=== PATIENT | female | born 1960 | race Caucasian/White ===

== ENCOUNTER 2019-04-09 17:15 | Emergency (ER) | payer BC, SELFPAY ==
[2019-04-09] MEDS ORDERED: LIDOCAINE 1% MPF 30 ML VIAL ONE (17:46)
[2019-04-09] MEDS ORDERED: LIDOCAINE 1% MPF 5 ML VIAL ONE (17:46)
[2019-04-09] MEDS ORDERED: LIDOCAINE 1% W/EPI 1:100,000 MDV 20 ML VIAL ONE (17:47)
--- NOTE | 2019-04-09 18:21 | ER ---
Nurse's Notes [facility] Name: Nasra Anthony Age: 58 yrs Sex: Female : 1960 Arrival Date: 04/09/2019 Time: 17:18 Bed 6 Private MD: Diagnosis: Left breast abscess and cellulitis Presentation: 04/09 17:31 Presenting complaint: abscess on left breast x 1 week. Transition of care: patient was hb not received from another setting of care. Onset of symptoms was April 03, 2019. Risk Assessment: Do you want to hurt yourself or someone else? Patient reports no desire to harm self or others. Initial Sepsis Screen: Does the patient meet any 2 criteria? HR > 90 bpm. No. Patient's initial sepsis screen is negative. Care prior to arrival: None. 17:31 Method Of Arrival: Ambulatory hb 17:31 Acuity: STEVE 3 hb 18:00 Initial Sepsis Screen: Does the patient have a suspected source of infection? Yes:. iw Historical: - Allergies: 17:33 Hydrocodone-Acetaminophen; hb - PMHx: 17:33 Depression; High Cholesterol; Hypertension; hb - PSHx: 17:33 Hysterectomy; cervical laminectomy; hb - Immunization history:: Adult Immunizations up to date. - Social history:: Smoking status: Patient/guardian denies using tobacco. - Ebola Screening: : No symptoms or risks identified at this time. Screenin:18 Abuse screen: Denies threats or abuse. Denies injuries from another. Nutritional iw screening: No deficits noted. Tuberculosis screening: No symptoms or risk factors identified. Fall Risk None identified. Assessment: 17:50 General: Appears in no apparent distress. Behavior is calm, cooperative. Pain: iw Complains of pain in left breast. Neuro: Level of Consciousness is awake, alert, obeys commands, Oriented to person, place, time, situation, Moves all extremities. Full function. Respiratory: Respiratory effort is even, unlabored, Respiratory pattern is regular, symmetrical. Derm: Abscess located on left lateral anterior chest is golf ball sized, has no drainage, is hot to touch, is red, is raised, was lanced by patient prior to arrival, black colored skin/scabbing noted to left breast. Musculoskeletal: Range of motion: intact in all extremities. Vital Signs: 17:32 BP 164 / 92; Pulse 99; Resp 20; Temp 100(TE); Pulse Ox 97% on R/A; Weight 106.59 kg; hb Height 5 ft. 8 in. (172.72 cm); Pain 8/10; 17:32 Body Mass Index 35.73 (106.59 kg, 172.72 cm) hb ED Course: 17:18 Patient arrived in ED. mr 17:26 Deshaun Martínez MD is Attending Physician. ps1 17:32 Triage completed. hb 17:32 Arm band placed on. hb 17:36 Nany Lance, RN is Primary Nurse. iw 17:49 Patient has correct armband on for positive identification. Placed in gown. Bed in low mh5 position. Call light in reach. Side rails up X 1. Adult w/ patient. Warm blanket given. Pulse ox on. NIBP on. 18:18 Assist provider with I \T\ D: of an abscess on left breast Set up I\T\D tray. Performed by iw Deshaun Martínez MD Wound packed. iodoform gauze, Dressing with Neosporin and 4X4s, tape Patient tolerated well. 18:30 Patient did not have IV access during this emergency room visit. iw Administered Medications: No medications were administered Outcome: 18:20 Discharge ordered by . ps1 18:30 Discharged to home ambulatory, with family. iw 18:30 Condition: good 18:30 Discharge instructions given to patient, family, Instructed on discharge instructions, follow up and referral plans. medication usage, Demonstrated understanding of instructions, follow-up care, medications, Prescriptions given X 4. 18:35 Patient left the ED. iw 18:44 Patient left the ED. iw Addendum: 04/12/2019 07:21 Addendum: Culture Results: Positive urine culture. No further action required. Bacteria e b sensitive to prescribed antibiotic. Signatures: Leigh [address] mr Nany Lance RN RN iw Caron Chisholm RN RN June Cash [facility] Deshaun Martínez MD MD ps1 Anastasiya Ramesh
--- NOTE | 2019-04-09 18:21 | EDPHYS ---
Physician Documentation [facility] Name: Nasra Anthony Age: 58 yrs Sex: Female : 1960 Arrival Date: 04/09/2019 Time: 17:18 Bed 6 Private MD: ED Physician Deshaun Martínez HPI: 04/09 18:10 This 58 yrs old Female presents to ER via Ambulatory with complaints of ps1 Abscess. 18:10 patient has a moderate sized abscess of the left breast. Onset was 5 days ago. ps1 Surrounding cellulitis. No fever per patient. Temp 100 in ED. Black eschar on abscess. Fluctuant but not draining. Painful.. Historical: - Allergies: 17:33 Hydrocodone-Acetaminophen; hb - PMHx: 17:33 Depression; High Cholesterol; Hypertension; hb - PSHx: 17:33 Hysterectomy; cervical laminectomy; hb - Immunization history:: Adult Immunizations up to date. - Social history:: Smoking status: Patient/guardian denies using tobacco. - Ebola Screening: : No symptoms or risks identified at this time. ROS: 18:10 Constitutional: Negative for fever, chills, and weight loss, Eyes: Negative for injury, ps1 pain, redness, and discharge, Cardiovascular: Negative for chest pain, palpitations, and edema, Respiratory: Negative for shortness of breath, cough, wheezing, and pleuritic chest pain, Abdomen/GI: Negative for abdominal pain, nausea, vomiting, diarrhea, and constipation, MS/Extremity: Negative for injury and deformity. 18:10 Skin: Positive for abscess, cellulitis, of the left lateral anterior chest. Exam: 18:10 Constitutional: This is a well developed, well nourished patient who is awake, alert, ps1 and in no acute distress. Head/Face: Normocephalic, atraumatic. Eyes: Pupils equal round and reactive to light, extra-ocular motions intact. Lids and lashes normal. Conjunctiva and sclera are non-icteric and not injected. Chest/axilla: Normal chest wall appearance and motion. Nontender with no deformity. No lesions are appreciated. Cardiovascular: Regular rate and rhythm. No gallops, murmurs, or rubs. Normal PMI, no JVD. No pulse deficits. Respiratory: Lungs have equal breath sounds bilaterally, clear to auscultation and percussion. No rales, rhonchi or wheezes noted. No increased work of breathing, no retractions or nasal flaring. 18:10 Skin: Appearance: normal except for affected area, abscess, that is moderate sized, of the left lateral anterior chest, with fluctuance, with induration, with surrounding cellulitis, that is moderate. Vital Signs: 17:32 BP 164 / 92; Pulse 99; Resp 20; Temp 100(TE); Pulse Ox 97% on R/A; Weight 106.59 kg; hb Height 5 ft. 8 in. (172.72 cm); Pain 8/10; 17:32 Body Mass Index 35.73 (106.59 kg, 172.72 cm) hb Procedures: 18:10 I \T\ D: Incision and drainage was performed for an abscess of the left Breast Prepped ps1 with alcohol, Anesthetized with 10 ml's 1% Lidocaine w/ Epi. Incised with #11 blade. Drained moderate amount purulent fluid. bloody fluid. Loculations removed. Cultures obtained. Abscess cavity explored. Packed with iodoform gauze, Dressing: sterile 4x4 gauze, the patient tolerated the procedure well. MDM: 18:10 Differential diagnosis: abscess, cellulitis. Data reviewed: vital signs, nurses notes, ps1 and as a result, I will discharge patient. Counseling: I had a detailed discussion with the patient and/or guardian regarding: the historical points, exam findings, and any diagnostic results supporting the discharge/admit diagnosis, the need for outpatient follow up, to return to the emergency department if symptoms worsen or persist or if there are any questions or concerns that arise at home. 18:20 Patient medically screened. ps1 04/09 18:42 Order name: Wound Culture iw Administered Medications: No medications were administered Disposition: 04/09/19 18:20 Discharged to Home. Impression: Left breast abscess and cellulitis. - Condition is Stable. - Discharge Instructions: Skin Abscess. - Prescriptions for Keflex 500 mg Oral Capsule - take 1 capsule by ORAL route every 8 hours for 10 days; 30 capsule. Tylenol- Codeine #3 300-30 mg Oral Tablet - take 2 tablet by ORAL route every 6 hours As needed; 30 tablet. Zofran 4 mg Oral Tablet - take 1 tablet by ORAL route every 12 hours As needed; 20 tablet. Bactrim DS 800- 160 mg Oral Tablet - take 1 tablet by ORAL route every 12 hours for 10 days; 20 tablet. - Medication Reconciliation Form, Thank You Letter, Antibiotic Education, Prescription Opioid Use form. - Follow up: Emergency Department; When: As needed; Reason: Fever > 102 F, Worsening of condition. Follow up: Private Physician; When: As needed; Reason: Further diagnostic work-up, Recheck today's complaints, Continuance of care, Re-evaluation by your physician. - Problem is new. - Symptoms have improved. Signatures: Dispatcher [employer]NE Nany Lance RN RN iw Caron Chisholm RN RN hb Deshaun Martínez MD MD ps1 Corrections: (The following items were deleted from the chart) 18:35 18:20 04/09/2019 18:20 Discharged to Home. Impression: Left breast abscess and iw cellulitis. Condition is Stable. Forms are Medication Reconciliation Form, Thank You Letter, Antibiotic Education, Prescription Opioid Use. Follow up: Emergency Department; When: As needed; Reason: Fever > 102 F, Worsening of condition. Follow up: Private Physician; When: As needed; Reason: Further diagnostic work-up, Recheck today's complaints, Continuance of care, Re-evaluation by your physician. Problem is new. Symptoms have improved. ps1 18:44 18:35 04/09/2019 18:20 Discharged to Home. Impression: Left breast abscess and iw cellulitis. Condition is Stable. Discharge Instructions: Skin Abscess. Prescriptions for Keflex 500 mg Oral Capsule - take 1 capsule by ORAL route every 8 hours for 10 days; 30 capsule, Tylenol-Codeine #3 300-30 mg Oral Tablet - take 2 tablet by ORAL route every 6 hours As needed; 30 tablet, Zofran 4 mg Oral Tablet - take 1 tablet by ORAL route every 12 hours As needed; 20 tablet, Bactrim DS 800-160 mg Oral Tablet - take 1 tablet by ORAL route every 12 hours for 10 days; 20 tablet. and Forms are Medication Reconciliation Form, Thank You Letter, Antibiotic Education, Prescription Opioid Use. Follow up: Emergency Department; When: As needed; Reason: Fever > 102 F, Worsening of condition. Follow up: Private Physician; When: As needed; Reason: Further diagnostic work-up, Recheck today's complaints, Continuance of care, Re-evaluation by your physician. Problem is new. Symptoms have improved. iw
[2019-04-09 20:43] VITALS: BP 164/92; TEMP 100; O2SAT 97
== END 2019-04-09 18:44 | disposition home or self-care (01) ==
LOC: ER 17:15
DX: N61.1 Abscess of the breast and nipple (principal); Z88.6 Allergy status to analgesic agent
CPT/HCPCS: 87070; 87077; 87186; 87205; 99283

== ENCOUNTER 2021-03-29 11:24 | Day surgery (SDC) | payer OTHER ==
--- NOTE | 2021-03-24 14:38 | RAD REPORT ---
EXAM DESCRIPTION: RAD - Chest Pa And Lat (2 Views) - 03/24/2021 2:31 pm CLINICAL HISTORY: Pre op pending bladder biopsy COMPARISON: Chest Pa And Lat (2 Views) dated 08/16/2020; Chest Single View dated 10/06/2016; Chest Sing le View dated 10/05/2016; Chest Single View dated 08/29/2016 FINDINGS: Lines: None. Lungs: No evidence of edema or pneumonia. Pleural: No significant pleural effusions or pneumothorax. Cardiac: The heart size is within normal limits. Bones: No acute fractures. Other: IMPRESSION: No acute cardiopulmonary disease.
[2021-03-24 15:04] LABS: Absolute Lymphocytes (CBC) 1.9 K/uL (0.7-4.9); Basophils % 0.1 % (0-1.3); Hematocrit 40.1 % (36.0-45.0); Lymphocytes % 18.7 % (15.3-44.8); MPV 9.3 fL (7.6-11.3)
[2021-03-24 15:06] LABS: Protime INR 0.97
[2021-03-24 15:15] LABS: Potassium 4.4 mmol/L (3.5-5.1)
[2021-03-29] MEDS ORDERED: NA CHLORIDE 0.9% 1,000 ML ONE (11:44)
[2021-03-29] MEDS ORDERED: CEFAZOLIN/SWI 2gm 2 GM/20 ML SYR ONE (11:44)
[2021-03-29] MEDS ORDERED: propofoL 200 MG/20 ML VIAL IV ONE (13:56)
[2021-03-29] MEDS ORDERED: FENTANYL CITR 100 MCG/2 ML ONE (13:56)
[2021-03-29] MEDS ORDERED: LIDOCAINE 1% MPF 5 ML VIAL ONE (14:00)
[2021-03-29] MEDS ORDERED: ONDANSETRON 4 MG/2 ML VIAL ONE (14:12)
[2021-03-29] MEDS ORDERED: dexAMETHasone 10 MG/ML VIAL ONE (14:12)
[2021-03-29] MEDS ORDERED: NS 0.9% VIAL 10 ML ONE (14:21)
[2021-03-29] MEDS ORDERED: EPHEDRINE SULF 50 MG/ML VIAL ONE (14:21)
[2021-03-29] MEDS ORDERED: PHENAZOPYRIDINE 100MG TAB PO ONE ×2 (14:47→15:40)
[2021-03-29 15:23] VITALS: BP 139/78; TEMP 97.3; O2SAT 99
--- NOTE | 2021-03-30 02:05 | OP ---
Surgeon: AUGUSTINA SINGLETON Preoperative Diagnosis: Bladder lesion. Postoperative Diagnosis: Bladder lesion. Principal Procedures: 1.Cystoscopy with bladder biopsies and fulguration. 2.Right ureteral stent placement and extraction. Findings: Stenotic right ureteral orifice with erythematous irregular mucosa surrounding the right u reteral orifice. Indication For Procedure: Ms. Anthony presented to the Urology Clinic with a smoking history and mi croscopic hematuria. Cystoscopic evaluation revealed the presence of irregular mucosa in the region of the trigone. She was thus consented for bladder biopsy and presents for that management. The patient was consented in the preoperative holding area before being transferred to the operative suite where general anesthesia was induced. She was given Ancef 2 g IV antimicrobial prophylaxis and pneumo boots were provided for DVT prophylaxis. She was placed in the lithotomy position, padded an d secured to the table appropriately. Her genitalia were prepped using Hibiclens and draped in stand melvi fashion. The case was begun using a 22-Romanian rigid cystoscope and its obturator to traverse the urethra and into the bladder. Then, cystoscopic evaluation of the bladder was performed. The entir ety of the mucosa was surveyed from the bladder neck posteriorly including the dome anteriorly and abdullahi th lateral amin. The only area of abnormality noted was in the region around the right ureteral jolene fice, which was stenotic in appearance. In fact, the right ureteral orifice was so stenotic in appea shireen that I had to use the tip of the Sensor wire and a 5-Romanian ureteral access catheter in order t o cannulate it. I then placed a 5-Romanian ureteral access catheter into the orifice to stephane it while biopsies of the irregular mucosa were taken from the region of the trigone as well as just lateral an d posterior to the ureteral orifice on the right side. These were sent for pathologic analysis and t he base was fulgurated. The ureteral orifice mucosa was left intact without fulguration done within the millimeters of mucosa surrounding the orifice. As a result, I removed the 5-Romanian ureteral acce ss catheter and observed efflux of fluid from the ureteral orifice. The bladder was then decompresse d, and with no additional bleeding noted, the case was concluded. The patient was then taken out of the lithotomy position, awakened from general anesthesia, transferred to a stretcher, and then transf erred to the recovery room in good condition. Complications: None. Discharge Disposition: She should follow up in Urology Clinic within the next 1 to 3 weeks to discus s the results of the pathology and determine next steps and evaluation as necessary. OVI/ALVARADO Voice ID: [id number] Report ID: [id number]
== END 2021-03-29 15:50 | disposition home or self-care (01) ==
LOC: OR 11:24
PROVIDERS: ATTEND Urology
PROC: 0T768DZ Dilation of Right Ureter with Intraluminal Device, Via Natural or Artificial Opening Endoscopic (ICD-10-PCS; 2021-03-29)
PROC: 0TBB8ZX Excision of Bladder, Via Natural or Artificial Opening Endoscopic, Diagnostic (ICD-10-PCS; principal; 2021-03-29 11:15)
DX: N28.89 Other specified disorders of kidney and ureter (principal); N20.0 Calculus of kidney; R31.29 Other microscopic hematuria; Z20.822 Contact with and (suspected) exposure to COVID-19
CPT/HCPCS: 87088; 85025; 87086; 80048; 36415; 85610; 82947 ×2; 88305; 71046; 52204; 52332; U0002; J2704; J3010; J1100; J0690; J7030; J2405

== ENCOUNTER 2021-06-09 11:46 | Inpatient (IN) | payer OTHER, SELFPAY ==
--- OUTSIDE RECORDS SUMMARY | 2021-06-09 11:50 | XMS REPORT | Continuity of Care Document ---
:1960 Author Organization [facility] t Address [address] [place] [address] Care Team Providers Name Role Phone Avni Dahl MD Primary Care Physician AVNI DAHL Attending Clinician Unavailable MANI Attending Clinician Unavailable LAB90 Attending Clinician Unavailable Avni Dahl MD Attending Clinician MANI Admitting Clinician Unavailable Payers Payer Name Policy Type Policy Number Effective Date Expiration Date S ource AETNA 2 [id number] 2020 00:00:00 AETNA HMO POS [id number] 2020 00:00:00 QPOS Problems Condition Condition Condition Status Onset Resolution Last Treating Co mments Source Name Details Category Date Date Treatment Clinician Date Right Right Disease Active 2020-05 Mily renal mass renal mass 06-15 Se ybold 00:00: 00 Hyperlipid Hyperlipid Disease Active 2020-05 David del rio emia emia 06-15 Seybold 00:00: 00 Depression Depression Disease Active 2020-05 David del rio 06-15 Seybold 00:00: 00 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 00 with with hyperglyce hyperglyce brigitte (HCC) brigitte (HCC) - Not - Not Controlled Controlled No known No known Disease Kelse y active active Seybold problems problems Allergies, Adverse Reactions, Alerts Allergy Allergy Status Severity Reaction(s) Onset Inactive Treating Comm ents Source Name Type Date Date Clinician NO KNOWN Allergy Active ALDAIR ALLERGMONICA S Social History Social Habit Start Date Stop Date Quantity Comments Source History of Cigarette Smoker Mily vargas tobacco use Exposure to Not sure Mily Santiagool maria del carmen SARS-CoV-2 (event) Sex Ass[birth year] At [birth year] Mily john 00:00:00 00:00:00 Smoking Status Start Date Stop Date Source Ex-smoker 2021-01-12 00:00:00 2021-01-12 00:00:00 Mily vargas Medications Ordered Filled Start Stop Current Ordering Indication Dosage Frequency Signature Comments Components Source Medication Medication Date Date Medication? Clinician (SIG) Name Name Amoxicillin 2020-05 Yes [id number] 1{tbl} Take 1 Mily -Pot 2-09 tablet by Seybold Clavulanate 00:00: mouth 2 875-125 MG 00 times oral Tablet daily Escitalopra 2020-05 Yes [id number] 20mg Take 1 Mily m Oxalate 2-09 tablet (20 Seyb old 20 MG oral 00:00: mg total) Tablet 00 by mouth daily Lisinopril 2020-05 Yes 10mg Take 1 Kelse y 10 MG oral 1-24 tablet (10 Sey bold Tablet 00:00: mg total) 00 by mouth daily Rosuvastati 2020-05 Yes 20mg Take 1 Radha ey n Calcium 1-24 tablet (20 Seyb old 20 MG oral 00:00: mg total) Tablet 00 by mouth daily Valacyclovi 2020-05 Yes 1000mg Take 1 Ke lsey r HCl 1 g 1-24 tablet Seybold oral Tablet 00:00: (1,000 mg 00 total) by mouth 2 times daily Bupropion 2020-05 Yes 300mg Take 300 Kvng sey HCL XL 300 0-11 mg by Seybold MG OR TB24 15:01: mouth 13 daily Bupropion 2020-05 Yes 300mg Take 300 Kvng sey HCL XL 300 0-11 mg by Seybold MG OR TB24 15:01: mouth 13 daily Bupropion 2021-0 Yes 300mg Take 300 Kvng sey HCL XL 300 9-30 mg by Seybold MG OR TB24 15:05: mouth 24 daily Escitalopra 2020-0 Yes [id number] 10mg Take 1 Mily m Oxalate 9-30 tablet (10 Seyb old 10 MG oral 00:00: mg total) Tablet 00 by mouth daily Escitalopra 2020-0 Yes [id number] 10mg Take 1 Mily m Oxalate 9-30 tablet (10 Seyb old 10 MG oral 00:00: mg total) Tablet 00 by mouth daily Escitalopra 0 202- No [id number] 10mg Take 1 Mily m Oxalate 9-30 12-09 tablet (10 Sey bold 10 MG oral 00:00: 00:00 mg total) Tablet 00 :00 by mouth daily Metformin 0 Yes [id number] 1000mg Take 2 Mily HCl 500 MG 9-09 tablets Seybol d oral Tablet 00:00: (1,000 mg 00 total) by mouth 2 times daily (with meals) Metformin 2020-0 Yes [id number] 1000mg Take 2 Mily HCl 500 MG 9-09 tablets Seybol d oral Tablet 00:00: (1,000 mg 00 total) by mouth 2 times daily (with meals) Metformin 2020-0 Yes [id number] 1000mg Take 2 Mily HCl 500 MG 9-09 tablets Seybol d oral Tablet 00:00: (1,000 mg 00 total) by mouth 2 times daily (with meals) Metformin 2020-0 Yes [id number] 1000mg Take 2 Mily HCl 500 MG 9-09 tablets Seybol d oral Tablet 00:00: (1,000 mg 00 total) by mouth 2 times daily (with meals) Apixaban 2020-0 2020- No 1mg Take 1 mg Kvng sey (Eliquis) 5 01-12 09-08 by mouth Sey bold MG oral 16:53: 00:00 daily Tablet 03 :00 Bupropion 2020-0 Yes 300mg Take 300 Kvng sey HCL XL 300 9-08 mg by Seybold MG OR TB24 15:30: mouth 13 daily Bupropion 2020-0 Yes 300mg Take 300 Kvng sey HCL XL 300 9-08 mg by Seybold MG OR TB24 15:30: mouth 13 daily Budesonide, Yes [id number] IUSE 1 Mily Inhalation, 908 VIAL IN Seybo ld 1 MG/2ML 00:00: NEBULIZER inhalation 00 3 TIMES A Suspension DAY NEEDED Escitalopra 2020-0 Yes [id number] 10mg Take 1 Mily m Oxalate 9-08 tablet (10 Seyb old 10 MG oral 00:00: mg total) Tablet 00 by mouth daily Budesonide, Yes [id number] IUSE 1 Mily Inhalation, 9 VIAL IN Seybo ld 1 MG/2ML 00:00: NEBULIZER inhalation 00 3 TIMES A Suspension DAY NEEDED Escitalopra Yes [id number] 10mg Take 1 Mily m Oxalate 9-08 tablet (10 Seyb old 10 MG oral 00:00: mg total) Tablet 00 by mouth daily Budesonide, Yes [id number] IUSE 1 Mily Inhalation, 9 VIAL IN Seybo ld 1 MG/2ML 00:00: NEBULIZER inhalation 00 3 TIMES A Suspension DAY NEEDED Budesonide, Yes [id number] IUSE 1 Mily Inhalation, 908 VIAL IN Seybo ld 1 MG/2ML 00:00: NEBULIZER inhalation 00 3 TIMES A Suspension DAY NEEDED Budesonide, Yes [id number] IUSE 1 Mily Inhalation, 01-12 VIAL IN Seybo ld 1 MG/2ML 00:00: NEBULIZER inhalation 00 3 TIMES A Suspension DAY NEEDED Tolterodine 2020-0 Yes 4mg Take 1 Radha ey Tartrate 7-26 capsule (4 Seybo ld (Detrol LA) 00:00: mg total) 4 MG oral 00 by mouth Capsule 24 daily Hour Sustained Release Tolterodine 2020-0 Yes 4mg Take 1 Radha ey Tartrate 7-26 capsule (4 Seybo ld (Detrol LA) 00:00: mg total) 4 MG oral 00 by mouth Capsule 24 daily Hour Sustained Release Tolterodine 2021-0 Yes 4mg Take 1 Radha ey Tartrate 7-26 capsule (4 Seybo ld (Detrol LA) 00:00: mg total) 4 MG oral 00 by mouth Capsule 24 daily Hour Sustained Release Tolterodine 2020-0 Yes 4mg Take 1 Radha ey Tartrate 7-26 capsule (4 Seybo ld (Detrol LA) 00:00: mg total) 4 MG oral 00 by mouth Capsule 24 daily Hour Sustained Release Tolterodine 1-0 Yes 4mg Take 1 Radha ey Tartrate 7-26 capsule (4 Seybo ld (Detrol LA) 00:00: mg total) 4 MG oral 00 by mouth Capsule 24 daily Hour Sustained Release Pantoprazol 1-0 Yes 40mg Take 1 Radha ey e Sodium 40 5-17 tablet (40 Se ybold MG oral 00:00: mg total) Tablet 00 by mouth Delayed daily Response Pantoprazol 1-0 Yes 40mg Take 1 Radha ey e Sodium 40 5-17 tablet (40 Se ybold MG oral 00:00: mg total) Tablet 00 by mouth Delayed daily Response Pantoprazol 1-0 Yes 40mg Take 1 Radha ey e Sodium 40 5-17 tablet (40 Se ybold MG oral 00:00: mg total) Tablet 00 by mouth Delayed daily Response Pantoprazol 1-0 Yes 40mg Take 1 Radha ey e Sodium 40 5-17 tablet (40 Se ybold MG oral 00:00: mg total) Tablet 00 by mouth Delayed daily Response Pantoprazol 1-0 Yes 40mg Take 1 Radha ey e Sodium 40 5-17 tablet (40 Se ybold MG oral 00:00: mg total) Tablet 00 by mouth Delayed daily Response Pantoprazol 1-0 Yes 40mg Take 1 Radha ey e Sodium 40 5-17 tablet (40 Se ybold MG oral 00:00: mg total) Tablet 00 by mouth Delayed daily Response Pantoprazol 1-0 Yes 40mg Take 1 Radha ey e Sodium 40 5-17 tablet (40 Se ybold MG oral 00:00: mg total) Tablet 00 by mouth Delayed daily Response Pantoprazol 1-0 Yes 40mg Take 1 Radha ey e Sodium 40 5-17 tablet (40 Se ybold MG oral 00:00: mg total) Tablet 00 by mouth Delayed daily Response Pantoprazol 2021-0 Yes 40mg Take 1 Radha ey e Sodium 40 5-17 tablet (40 Se ybold MG oral 00:00: mg total) Tablet 00 by mouth Delayed daily Response Pantoprazol 1-0 Yes 40mg Take 1 Radha ey e Sodium 40 5-17 tablet (40 Se ybold MG oral 00:00: mg total) Tablet 00 by mouth Delayed daily Response Lisinopril Yes 10mg Take 1 Kelse y 10 MG oral 4-14 tablet (10 Sey bold Tablet 00:00: mg total) 00 by mouth daily Rosuvastati Yes 20mg Take 1 Radha ey n Calcium 4-14 tablet (20 Seyb old 20 MG oral 00:00: mg total) Tablet 00 by mouth daily Lisinopril Yes 10mg Take 1 Kelse y 10 MG oral 4-14 tablet (10 Sey bold Tablet 00:00: mg total) 00 by mouth daily Rosuvastati Yes 20mg Take 1 Radha ey n Calcium 4-14 tablet (20 Seyb old 20 MG oral 00:00: mg total) Tablet 00 by mouth daily Lisinopril Yes 10mg Take 1 Kelse y 10 MG oral 4-14 tablet (10 Sey bold Tablet 00:00: mg total) 00 by mouth daily Rosuvastati Yes 20mg Take 1 Radha ey n Calcium 4-14 tablet (20 Seyb old 20 MG oral 00:00: mg total) Tablet 00 by mouth daily Lisinopril Yes 10mg Take 1 Kelse y 10 MG oral 4-14 tablet (10 Sey bold Tablet 00:00: mg total) 00 by mouth daily Rosuvastati Yes 20mg Take 1 Radha ey n Calcium 4-14 tablet (20 Seyb old 20 MG oral 00:00: mg total) Tablet 00 by mouth daily Budesonide, 2020- No IUSE 1 Kvng sey Inhalation, 06-07 VIAL IN Seyb old 1 MG/2ML 00:00: 00:00 NEBULIZER inhalation 00 :00 3 TIMES A Suspension DAY NEEDED Azithromyci 2020- No TAKE BY Maycol aiken n 250 MG 06-07 MOUTH 2 Seybold oral Tablet 00:00: 00:00 TABLETS 00 :00 TODAY THEN 1 TABLET DAILY FOR NEXT 4 DAYS Immunizations Ordered Immunization Filled Immunization Date Status Commen ts [facility] Mily Seybol d (Zostavax) 00:00:00 Shingles SQ 2016-03-13 Completed Mily Seybol d (Zostavax) 00:00:00 Shingles SQ 2016-03-13 Completed Mily Seybol d (Zostavax) 00:00:00 Shingles SQ 2016-03-13 Completed Mily Seybol d (Zostavax) 00:00:00 Tdap- (Boostrix, 2016-03-08 Completed Mily S eybold Adacel) 00:00:00 Tdap- (Boostrix, 2016-03-08 Completed Mily S eybold Adacel) 00:00:00 Tdap- (Boostrix, 2016-03-08 Completed Mily S eybold Adacel) 00:00:00 Tdap- (Boostrix, 2016-03-08 Completed Mily S eybold Adacel) 00:00:00 Tdap- (Boostrix, 2016-03-08 Completed Mily S eybold Adacel) 00:00:00 Influenza Virus 2014-02-06 Completed Mily Se ybold Vaccine, age 6 00:00:00 months and up Influenza Virus 2014-02-06 Completed Mily Se ybold Vaccine, age 6 00:00:00 months and up Influenza Virus 2014-02-06 Completed Mily Se ybold Vaccine, age 6 00:00:00 months and up Influenza Virus 2014-02-06 Completed Mily Se ybold Vaccine, age 6 00:00:00 months and up Influenza Virus 2014-02-06 Completed Mily Se ybold Vaccine, age 6 00:00:00 months and up Vital Signs Vital Name Observation Time Observation Value Comments Source HEIGHT 2021-06-02 10:30:00 172.7 cm WEIGHT 2021-06-02 10:30:00 105.7 kg HEIGHT 2021-05-31 13:04:00 172.7 cm WEIGHT 2021-05-31 13:04:00 107.049 kg HEIGHT 2021-06-02 10:30:00 172.7 cm WEIGHT 2021-06-02 10:30:00 105.7 kg HEIGHT 2021-05-31 13:04:00 172.7 cm WEIGHT 2021-05-31 13:04:00 107.049 kg HEIGHT 2021-05-30 12:49:00 172.7 cm WEIGHT 2021-05-30 12:49:00 108.228 kg HEIGHT 2021-05-30 12:49:00 172.7 cm WEIGHT 2021-05-30 12:49:00 108.228 kg Systolic blood pressure 2021-04-14 20:59:00 136 mm[Hg] Mily Seybold Diastolic blood 2021-04-14 20:59:00 70 mm[Hg] Kelse y Seybold pressure Heart rate 2021-04-14 20:59:00 82 /min Mily S eybold Body temperature 2021-04-14 20:59:00 37.11 Hailey Radha ey Seybold Respiratory rate 2021-04-14 20:59:00 14 /min Radha ey Seybold Body height 2021-04-14 20:59:00 165.1 cm Mily S eybold Body weight 2021-04-14 20:59:00 107.049 kg Mily S eybold BMI 2021-04-14 20:59:00 39.27 kg/m2 Mily S eybold Diastolic blood 2021-02-14 19:56:00 76 mm[Hg] Kelse y Seybold pressure Heart rate 2021-02-14 19:56:00 93 /min Mily S eybold Body temperature 2021-02-14 19:56:00 36.5 Hailey Radha ey Seybold Respiratory rate 2021-02-14 19:56:00 16 /min Radha ey Seybold Body height 2021-02-14 19:56:00 165.1 cm Mily S eybold Body weight 2021-02-14 19:56:00 110.224 kg Mily S eybold BMI 2021-02-14 19:56:00 40.44 kg/m2 Mily S eybold Systolic blood pressure 2021-02-14 19:56:00 124 mm[Hg] Mily Seybold Systolic blood pressure 2021-02-03 19:59:00 104 mm[Hg] Mily Seybold Diastolic blood 2021-02-03 19:59:00 62 mm[Hg] Kelse y Seybold pressure Heart rate 2021-02-03 19:59:00 79 /min Mily S eybold Body temperature 2021-02-03 19:59:00 36 Hailey Radha ey Seybold Respiratory rate 2021-02-03 19:59:00 16 /min Radha ey Seybold Body height 2021-02-03 19:59:00 172.7 cm Mily S eybold Body weight 2021-02-03 19:59:00 112.038 kg Mily S eybold BMI 2021-02-03 19:59:00 37.56 kg/m2 Mily S eybold Systolic blood pressure 2021-01-13 20:59:00 138 mm[Hg] Mily Seybold Diastolic blood 2021-01-13 20:59:00 79 mm[Hg] Kelse y Seybold pressure Heart rate 2021-01-13 20:59:00 85 /min Mily S eybold Body temperature 2021-01-13 20:59:00 36.89 Hailey Radha ey Seybold Respiratory rate 2021-01-13 20:59:00 14 /min Radha ey Seybold Body height 2021-01-13 20:59:00 172.7 cm Mily Camp eybold Body weight 2021-01-13 20:59:00 112.401 kg Mily Camp eybold BMI 2021-01-13 20:59:00 37.68 kg/m2 Mily Camp eybold Oxygen saturation in 2021-01-13 20:59:00 97 /min Mily Blackman Arterial blood by Pulse oximetry Systolic blood pressure 2021-01-12 20:23:00 132 mm[Hg] Mily Seybold Diastolic blood 2021-01-12 20:23:00 82 mm[Hg] Kelse y Seybold pressure Heart rate 2021-01-12 20:23:00 96 /min Mily S eybold Body temperature 2021-01-12 20:23:00 36.56 Hailey Radha ey Seybold Respiratory rate 2021-01-12 20:23:00 20 /min Radha ey Seybold Body height 2021-01-12 20:23:00 172.7 cm Mily S eybold Body weight 2021-01-12 20:23:00 112.674 kg Mily S eybold BMI 2021-01-12 20:23:00 37.77 kg/m2 Mily Conrado sam Procedures This patient has no known procedures. Encounters Start End Encounter Admission Attending Care Care Encounter Source Date/Time Date/Time Type Type Clinicians Facility Department ID 2021-06-01 Outpatient [facility] [id number] [facility] [address] 14:10:31 [id number] [facility] 2021-06-01 Outpatient [facility] [id number] [address] 14:05:33 [id number] [facility] 2021-07-19 2021-07-19 Outpatient MILY DAHL [id number] Mily 08:00:00 08:00:00 IVY joyce 2021-06-02 2021-06-04 Inpatient ALDAIR GALINDO Surgery [id number] [facility] 09:41:00 14:40:00 [facility] 2021-05-31 2021-05-31 Outpatient FALGUNI QUINTEROS [facility] [id number] [facility] 13:14:06 23:59:00 2021-05-30 2021-05-30 Outpatient ALDAIR GALINDO [facility] [id number] [facility] 13:32:10 23:59:00 [facility] 2021-05-30 2021-05-30 Outpatient [facility] [id number] [facility] 00:00:00 23:59:[facility] 2021-05-30 2021-05-30 Outpatient ALDAIR GALINDO [facility] [id number] [facility] 12:12:21 12:29:00 [facility] 2021-05-24 2021-05-24 Outpatient MILY DAHL [id number] Mily 00:00:00 00:00:00 IVY joyce 2021-04-14 2021-04-14 Outpatient LAB90 MILY LEIGH [id number] Mily 15:45:00 15:45:00 Seybol maria del carmen 2021-04-14 2021-04-14 Office Quinton Dahl [id number] Mily 15:00:00 15:30:00 Visit Ivy Veloz [id number] Se alvaro Foster [id number] 2021-04-08 2021-04-08 ambulatory [facility] [id number] [facility] 2021-03-30 2021-03-30 Outpatient MILY DAHL [id number] Mily 00:00:00 00:00:00 IVY Pamelaol d 2021-03-11 2021-03-11 ambulatory [facility] [id number] [facility] 2021-03-02 2021-03-02 Outpatient [facility] [id number] [facility] 2021-02-14 2021-02-14 Office Quinton Dahl [id number] Mily 14:54:02 15:54:02 Visit Ivy Veloz [id number] Se alvaro Foster [id number] 2021-02-04 2021-02-04 Outpatient MILY DAHL [id number] Mliy 00:00:00 00:00:00 IVY Pamelaol d 2021-02-03 2021-02-03 Office Quinton Dahl [id number] Mily 14:59:00 15:29:00 Visit Ivy Magdiel [id number] Se alvaro Quilesyi [id number] 2021-02-03 2021-02-03 Outpatient MILY DAHL [id number] Mily 00:00:00 00:00:00 IVY Pamelaol d 2021-02-03 2021-02-03 Outpatient MILY DAHL [id number] Mily 00:00:00 00:00:00 IVY hanselol d 2021-01-13 2021-01-13 Office Quinton Dahl [id number] Mily 15:54:34 16:24:34 Visit Ivy Veloz [id number] Se alvaro Quilesyi [id number] 2021-01-12 2021-01-12 Outpatient LAB90 MLIY LEIGH [id number] Mily 16:15:00 16:15:00 Seybol d 2021-01-12 2021-01-12 Office Quinton Dahl [id number] Mily 15:20:31 15:50:31 Visit Ivy Veloz [id number] Se alvaro Quilesyi [id number] Results Test Description Test Time Test Comments Results Result Comments Source POCT-GLUCOSE METER 2021-06-04 12:11:19 Test Item Value Reference Range Interpretation Comme nts POC-GLUCOSE METER (BEAKER) 95 mg/dL 70-110 : TESTED AT [facility] [address] [facility] (test code = 1538) E[place]ANOR Powell , [address]: Drop Count Associate/Techni baljinder ID = [id number] for BETITOANTONINAHEAVENLY A CREATININE, RANDOM [id number] 09:35:28 Test Item Value Reference Range Interpretation Comments CREATININE URINE (BEAKER) (test code < mg/dL = 375) Reference Range: No NormalsOperator ID - DBPOCT-GLUCOSE [id number] 08:57:02 Test Item Value Reference Range Interpretation Comments POC-GLUCOSE METER 112 mg/dL 70-110 H : TESTED A T [facility] [address] (BEAKER) (test code = [place], 1538) [address]: Drop Count Associate/Techni baljinder ID = [id number] for IRINEO RIOSGARIMA BIBI BASIC METABOLIC [id number] 05:48:26 Test Item Value Reference Range Interpretation Comments SODIUM (BEAKER) 138 meq/L 136-145 (test code = 381) POTASSIUM (BEAKER) 4.1 meq/L 3.5-5.1 (test code = 379) CHLORIDE (BEAKER) 101 meq/L 98-107 (test code = 382) CO2 (BEAKER) (test 30 meq/L 22-29 H code = 355) BLOOD UREA NITROGEN 12 mg/dL 7-21 (BEAKER) (test code = 354) CREATININE (BEAKER) 0.76 mg/dL 0.57-1.25 (test code = 358) GLUCOSE RANDOM 120 mg/dL 70-105 H (BEAKER) (test code = 652) CALCIUM (BEAKER) 8.1 mg/dL 8.4-10.2 L (test code = 697) EGFR (BEAKER) (test 77 mL/min/1.73 ESTIMA CAREN GFR IS code = 1092) sq m NOT ACCURATE CREATININE CLEARANCE IN PREDICTING GLOMERULAR FILTRATION RATE . ESTIMATED GFR I S NOT APPLICABLE FOR DIALYSIS PATIEN TS. Drop Count Associate ID - DBHEMOGLOBIN AND [id number] 05:13:07 Test Item Value Reference Range Interpretation Comments HEMOGLOBIN (BEAKER) (test code = 10.2 GM/DL 11.2-15.7 L 410) HEMATOCRIT (BEAKER) (test code = 32.8 % 34.1-44.9 L 411) Drop Count Associate ID - [id number]-GLUCOSE [id number] 21:29:53 Test Item Value Reference Range Interpretation Comments POC-GLUCOSE METER 110 mg/dL 70-110 : TESTED A T [facility] [address] (BEAKER) (test code = [facility]) [address]: Drop Count Associate/Techni baljinder ID = [id number] for GR AHAM, GREGORIA POCT-GLUCOSE [id number] 17:42:29 Test Item Value Reference Range Interpretation Comments POC-GLUCOSE METER 84 mg/dL 70-110 : TESTED A T [facility] [address] (BEAKER) (test code = [facility]) [address]: Drop Count Associate/Techni baljinder ID = [id number] for ROBERTA S, KEYAIRA POCT-GLUCOSE [id number] 12:07:56 Test Item Value Reference Range Interpretation Comments POC-GLUCOSE METER 119 mg/dL 70-110 H : TESTED A T [facility] [address] (BEAKER) (test code = [facility], 1538) [address]: Drop Count Associate/Techni baljinder ID = [id number] for DA VIS, KEYAIRA POCT-GLUCOSE [id number] 08:41:26 Test Item Value Reference Range Interpretation Comments POC-GLUCOSE METER 171 mg/dL 70-110 H : TESTED A T [facility] [address] (BEAKER) (test code = [facility], 1538) [address]: Drop Count Associate/Techni baljinder ID = [id number] for CHELLE LOZANO BASIC METABOLIC [id number] 05:24:40 Test Item Value Reference Range Interpretation Comments SODIUM (BEAKER) 138 meq/L 136-145 (test code = 381) POTASSIUM (BEAKER) 4.3 meq/L 3.5-5.1 (test code = 379) CHLORIDE (BEAKER) 101 meq/L 98-107 (test code = 382) CO2 (BEAKER) (test 28 meq/L 22-29 code = 355) BLOOD UREA NITROGEN 11 mg/dL 7-21 (BEAKER) (test code = 354) CREATININE (BEAKER) 0.81 mg/dL 0.57-1.25 (test code = 358) GLUCOSE RANDOM 147 mg/dL 70-105 H (BEAKER) (test code = 652) CALCIUM (BEAKER) 8.2 mg/dL 8.4-10.2 L (test code = 697) EGFR (BEAKER) (test 72 mL/min/1.73 ESTIMA CAREN GFR IS code = 1092) sq m NOT ACCURATE CREATININE CLEARANCE IN PREDICTING GLOMERULAR FILTRATION RATE . ESTIMATED GFR I S NOT APPLICABLE FOR DIALYSIS PATIEN TS. Drop Count Associate ID - PIAYA LHEMOGLOBIN AND [id number] 04:55:50 Test Item Value Reference Range Interpretation Comments HEMOGLOBIN (BEAKER) (test code = 11.0 GM/DL 11.2-15.7 L 410) HEMATOCRIT (BEAKER) (test code = 36.9 % 34.1-44.9 411) Drop Count Associate ID - [id number]-GLUCOSE [id number] 23:32:42 Test Item Value Reference Range Interpretation Comments POC-GLUCOSE METER 199 mg/dL 70-110 H : TESTED A T [facility] [address] (BEAKER) (test code = [place], 1538) [address]: Drop Count Associate/Techni baljinder ID = [id number] for MAURICE HOPSON BASIC METABOLIC [id number] 20:05:45 Test Item Value Reference Range Interpretation Comments SODIUM (BEAKER) 138 meq/L 136-145 (test code = 381) POTASSIUM (BEAKER) 4.7 meq/L 3.5-5.1 (test code = 379) CHLORIDE (BEAKER) 101 meq/L 98-107 (test code = 382) CO2 (BEAKER) (test 26 meq/L 22-29 code = 355) BLOOD UREA NITROGEN 11 mg/dL 7-21 (BEAKER) (test code = 354) CREATININE (BEAKER) 0.85 mg/dL 0.57-1.25 (test code = 358) GLUCOSE RANDOM 239 mg/dL 70-105 H (BEAKER) (test code = 652) CALCIUM (BEAKER) 8.4 mg/dL 8.4-10.2 (test code = 697) EGFR (BEAKER) (test 68 mL/min/1.73 ESTIMA CAREN GFR IS code = 1092) sq m NOT ACCURATE CREATININE CLEARANCE IN PREDICTING GLOMERULAR FILTRATION RATE . ESTIMATED GFR I S NOT APPLICABLE FOR DIALYSIS PATIEN TS. Drop Count Associate ID - PIAYA LHEMOGLOBIN AND [id number] 19:38:19 Test Item Value Reference Range Interpretation Comments HEMOGLOBIN (BEAKER) (test code = 12.8 GM/DL 11.2-15.7 410) HEMATOCRIT (BEAKER) (test code = 43.4 % 34.1-44.9 411) Drop Count Associate ID - [id number], [id number] 17:56:43 Test Item Value Reference Range Interpretation Comments CALCIUM IONIZED (BEAKER) (test 1.01 mmol/L 1.12-1.27 L code = 698) PH, BLOOD (BEAKER) (test code = 7.35 1810) GLUCOSE-STAT [id number] 17:56:16 Test Item Value Reference Range Interpretation Comments GLUCOSE RANDOM (BEAKER) (test code 226 mg/dL 70-110 H = 652) HGB/HCT (H&H) - STAT [id number] 17:56:16 Test Item Value Reference Range Interpretation Comments HEMOGLOBIN (BEAKER) (test code = 11.9 GM/DL 12.0-15.0 L 410) HEMATOCRIT (BEAKER) (test code = 35.0 % 36.0-45.0 L 411) BLOOD GAS, [id number] 17:56:15 Test Item Value Reference Range Interpretation Comments PH ARTERIAL (BEAKER) (test code = 7.38 7.35-7.45 383) PCO2 ARTERIAL (BEAKER) (test code 44 mm Hg 35-45 = 384) PO2 ARTERIAL (BEAKER) (test code 109 mm Hg 80-90 H = 385) O2 SATURATION ARTERIAL (BEAKER) 98.2 % 96.0-97.0 H (test code = 386) HCO3 ARTERIAL (BEAKER) (test code 26 mmol/L 21-29 = 388) BASE EXCESS ARTERIAL (BEAKER) -0.1 mmol/L -2.0-3.0 (test code = 387) PATIENT TEMPERATURE (BEAKER) 35.0 (test code = 1818) FIO2 (BEAKER) (test code = 1819) 56.0 SODIUM NA-STAT [id number] 17:54:44 Test Item Value Reference Range Interpretation Comments SODIUM (BEAKER) (test code = 381) 136 meq/L 136-145 POTASSIUM-STAT [id number] 17:54:44 Test Item Value Reference Range Interpretation Comments POTASSIUM (BEAKER) (test code = 4.0 meq/L 3.6-5.5 379) POCT-GLUCOSE [id number] 10:45:09 Test Item Value Reference Range Interpretation Comments POC-GLUCOSE METER 114 mg/dL 70-110 H : TESTED A T [facility] 6720 (BEAKER) (test code = KAREENLUPILLO Arriaga [facility], 1538) [address]: Drop Count Associate/Techni baljinder ID = [id number] for PEÑA CHEUNG URINE [id number] 12:46:50 Test Item Value Reference Range Interpretation Comments CULTURE (BEAKER) (test 20-29,000 col/mL skin code = 1095) gautam SARS-COV2/RT-PCR ([facility])2021-05-30 22:44:51 Test Item Value Reference Range Interpretation Comments SARS-COV2/RT-PCR (test Negative Not Detected, Negative, code = [id number]) See external report for linked test SARS-COV-2 PERFORMING LAB [facility] ANGELIQUE (test code = [id number]) Negative result for this test determines that SARS-CoV-2 RNA was not present in the specimen above the Limit of Detection (LOD). However, Negative results do not preclude SARS-CoV-2 infection and should not be used as the sole basis for treatment or patient management decisions. Negative results mustbe combined with clinical observations, patient history, and epidemiological information. A false negative result may occur if a specimen is improperly collected, transported or handled. A false negative result should be considered if patient's recent exposures or clinical presentation indicate that COVID-19 (SARS-CoV-2) is likely and diagnostic tests for other causes of illness are negative. Re-testing should be considered in cases of suspected false negatives.The limit of detection for this assay is 800 copies/mL.This SARS CoV-2 test is a real-time RT-PCR test intended for the qualitative detection of nucleic acid from SARS-CoV-2 in a nasopharyngeal swab specimen collected from individuals suspected of COVID-19 by their healthcare provider.This test has not been Food and Drug Administration (FDA) cleared or approved. This is a modified version of an approved Emergency Use Authorization (EUA) and is in the process of review by the FDA. Once authorized by the FDA, the issued EUA will be effective until the declaration that circumstances exist justifying the authorization of the emergency use of in vitro diagnostic tests for detection and/or diagnosis of COVID-19 is terminated under Section 564(b)(2) of the Act or the EUA is revoked under Section 564(g) of the Act.Fact Sheet for Healthcare Providers:https://www.[employer]Now/sites/default/files/product/documents/Fact_Shee p_DX_Yxiftllao_Krrh_JDXD-VrD-7.pdfFact Sheet for Healthcare Patients:https://www.[employer]/sites/default/files/product/ documents/Xgok_Wnjxv_Dewrofsc_Mflr_YQJR-MgI-4.pdfPerforming Laboratory:[facility], [place] [address]GEK, CHEST, 2 VIEWS 2021-05-30 15:10:00Reason for exam:->Kidney mass [N28.89] [facility] : 1960 Sex: FFINAL REPORT Exam: RAD, CHEST, 2 VIEWSDate: 05/30/2021 3:10 PM Indic ation: Renal mass Comparison: None FINDINGS: Lines/Tubes:None Lungs:The lungs are well inflated. No focal consolidation or pulmonary edema. Pleura:No pleural effusion. No pneumothorax. Heart/Mediastinum:The cardiomediastinal silhouette is normal in size and contour. Bones/Soft Tissues: No acute osseous injury. Abdomen: No free air below the diaphragm. IMPRESSION:Clear lungs. Signed: Aniya Geronimo MDReport Verified Date/Time: 05/30/2021 15:10:34 COMPREHENSIVE METABOLIC PANEL 2021-05-30 13:42:59 Test Item Value Reference Range Interpretation Comments TOTAL PROTEIN 6.9 gm/dL 6.0-8.3 (BEAKER) (test code = 770) ALBUMIN (BEAKER) 4.1 g/dL 3.5-5.0 (test code = 1145) ALKALINE PHOSPHATASE 84 U/L 40-150 (BEAKER) (test code = 346) BILIRUBIN TOTAL 0.2 mg/dL 0.2-1.2 (BEAKER) (test code = 377) SODIUM (BEAKER) (test 140 meq/L 136-145 code = 381) POTASSIUM (BEAKER) 4.0 meq/L 3.5-5.1 (test code = 379) CHLORIDE (BEAKER) 100 meq/L 98-107 (test code = 382) CO2 (BEAKER) (test 34 meq/L 22-29 H code = 355) BLOOD UREA NITROGEN 13 mg/dL 7-21 (BEAKER) (test code = 354) CREATININE (BEAKER) 0.65 mg/dL 0.57-1.25 (test code = 358) GLUCOSE RANDOM 62 mg/dL 70-105 L (BEAKER) (test code = 652) CALCIUM (BEAKER) 9.5 mg/dL 8.4-10.2 (test code = 697) AST (SGOT) (BEAKER) 12 U/L 5-34 (test code = 353) ALT (SGPT) (BEAKER) 11 U/L 6-55 (test code = 347) EGFR (BEAKER) (test 92 mL/min/1.73 ESTIMA CAREN GFR IS code = 1092) sq m NOT ACCURATE CREATININE CLEARANCE IN PREDICTING GLOMERULAR FILTRATION RATE . ESTIMATED GFR I S NOT APPLICABLE FOR DIALYSIS PATIEN TS. Drop Count Associate ID - [id number] 13:39:59 Test Item Value Reference Range Interpretation Comments PROTIME (BEAKER) (test 15.3 seconds 11.9-14.2 H code = 759) INR (BEAKER) (test 1.23 See_Comment [Automat ed code = 370) message] The sy stem which generated this result transmitted reference range : <=5.90. The reference range was not used to interpret this result as normal/abnormal . PARTIAL THROMBOPLASTIN 26.3 seconds 22.5-36.0 TIME (BEAKER) (test code = 760) RECOMMENDED COUMADIN/WARFARIN INR THERAPY RANGESSTANDARD DOSE: 2.0 - 3.0 Includes: PROPHYLAXIS forvenous thrombosis, systemic embolization; TREATMENT for venous thrombosis and/or pulmonary embolus.HIGH RISK: Target INR is 2.5-3.5 for patients with mechanical heart valves.URINALYSIS W/ REFLEX URINE CULTURE 2021-05-30 13:23:58 Test Item Value Reference Range Interpretation Comments COLOR (BEAKER) (test code = 470) Yellow CLARITY (BEAKER) (test code = 469) Clear SPECIFIC GRAVITY UA (BEAKER) (test 1.020 1.001-1.035 code = 468) PH UA (BEAKER) (test code = 467) 6.5 5.0-8.0 PROTEIN UA (BEAKER) (test code = Negative Negative 464) GLUCOSE UA (BEAKER) (test code = 300 mg/dL Negative A 365) KETONES UA (BEAKER) (test code = Negative Negative 371) BILIRUBIN UA (BEAKER) (test code = Negative Negative 462) BLOOD UA (BEAKER) (test code = 461) Negative Negative NITRITE UA (BEAKER) (test code = Negative Negative 465) LEUKOCYTE ESTERASE UA (BEAKER) Trace Negative A (test code = 466) UROBILINOGEN UA (BEAKER) (test code 2.0 mg/dL 0.2-1.0 H = 463) RBC UA (BEAKER) (test code = 519) 1 /HPF WBC UA (BEAKER) (test code = 520) 2 /HPF BACTERIA (BEAKER) (test code = 517) None Seen MUCUS (BEAKER) (test code = 1574) Rare SQUAMOUS EPITHELIAL (BEAKER) (test 2 /HPF code = 516) CRYSTALS, URINE (BEAKER) (test code None Seen = 1521) SOURCE(BEAKER) (test code = 2795) Drop Count Associate ID - [auto]Drop Count Associate ID - techCBC W/PLT COUNT & AUTO DIFFERENTIAL 2021-05-30 13:18:25 Test Item Value Reference Range Interpretation Comments WHITE BLOOD CELL COUNT (BEAKER) 10.3 K/ L 3.5-10.5 (test code = 775) RED BLOOD CELL COUNT (BEAKER) 4.75 M/ L 3.93-5.22 (test code = 761) HEMOGLOBIN (BEAKER) (test code = 12.4 GM/DL 11.2-15.7 410) HEMATOCRIT (BEAKER) (test code = 40.7 % 34.1-44.9 411) MEAN CORPUSCULAR VOLUME (BEAKER) 85.7 fL 79.4-94.8 (test code = 753) MEAN CORPUSCULAR HEMOGLOBIN 26.1 pg 25.6-32.2 (BEAKER) (test code = 751) MEAN CORPUSCULAR HEMOGLOBIN CONC 30.5 GM/DL 32.2-35.5 L (BEAKER) (test code = 752) RED CELL DISTRIBUTION WIDTH 15.3 % 11.7-14.4 H (BEAKER) (test code = 412) PLATELET COUNT (BEAKER) (test 394 K/CU MM 150-450 code = 756) MEAN PLATELET VOLUME (BEAKER) 9.9 fL 9.4-12.3 (test code = 754) NUCLEATED RED BLOOD CELLS 0 /100 WBC 0-0 (BEAKER) (test code = 413) NEUTROPHILS RELATIVE PERCENT 73 % (BEAKER) (test code = 429) LYMPHOCYTES RELATIVE PERCENT 19 % (BEAKER) (test code = 430) MONOCYTES RELATIVE PERCENT 7 % (BEAKER) (test code = 431) EOSINOPHILS RELATIVE PERCENT 1 % (BEAKER) (test code = 432) BASOPHILS RELATIVE PERCENT 0 % (BEAKER) (test code = 437) NEUTROPHILS ABSOLUTE COUNT 7.52 K/ L 1.56-6.13 H (BEAKER) (test code = 670) LYMPHOCYTES ABSOLUTE COUNT 1.96 K/ L 1.18-3.74 (BEAKER) (test code = 414) MONOCYTES ABSOLUTE COUNT (BEAKER) 0.70 K/ L 0.24-0.36 H (test code = 415) EOSINOPHILS ABSOLUTE COUNT 0.06 K/ L 0.04-0.36 (BEAKER) (test code = 416) BASOPHILS ABSOLUTE COUNT (BEAKER) 0.02 K/ L 0.01-0.08 (test code = 417) IMMATURE GRANULOCYTES-RELATIVE 0 % 0-1 PERCENT (BEAKER) (test code = 2801)
[2021-06-09 12:25] LABS: Absolute Lymphocytes (CBC) 1.5 K/uL (0.7-4.9); Hematocrit 34.8 % (36.0-45.0); Lymphocytes % 13.6 % (15.3-44.8); MPV 7.5 fL (7.6-11.3); RBC Red Blood Cell Count 4.29 M/uL (3.86-4.86)
[2021-06-09 12:45] LABS: Albumin 2.9 g/dL (3.4-5.0); Bilirubin Direct 0.1 mg/dL (0-0.2); Bilirubin Total 0.4 mg/dL (0.2-1.0); Potassium 3.3 mmol/L (3.5-5.1); Protein, Total 7.1 g/dL (6.4-8.2)
[2021-06-09] MEDS ORDERED: ONDANSETRON 4 MG/2 ML VIAL ONE (13:31)
[2021-06-09] MEDS ORDERED: MORPHINE 4 MG/ML SYR ONE (13:31)
--- NOTE | 2021-06-09 13:54 | RAD REPORT ---
EXAM DESCRIPTION: CT - Chest Abdomen Pelvis W Cont - 06/09/2021 1:40 pm CLINICAL HISTORY: Chest and abdomen pain. right shoulder COMPARISON: No comparisons TECHNIQUE: Approximately 100 mL nonionic IV contrast was administered to the patient. All CT scans are performed using dose optimization technique as appropriate and may include automated exposure control or mA/KV adjustment according to patient size. FINDINGS: The lungs are clear.No pleural or pericardial effusion.No intrathoracic adenopathy. There is age large amount of subcutaneous emphysema in the subcutaneous fat of the abdomen and pelvis . The liver demonstrates no focal mass or intrahepatic biliary dilatation. The spleen, pancreas, adrena l glands and left kidney are within normal limits. Postsurgical changes are seen involving the superior posterior aspect of the right kidney. Mild edema tous appearance is noted in the cortex of the superomedial aspect of the right kidney. Fluid collecti on is seen in the region measuring 4.0 x 3.3 cm which may be postsurgical or small urinoma. Small micah culus is seen inferior pole right kidney without hydronephrosis. Small air bubbles are present right perinephric fat. Small amount of free fluid is seen in the pelvis. A few small bubbles of air seen within the anterior intraperitoneal fat. Moderate soft tissue thickening is seen in the umbilical region. No bowel obst ruction is present. No abscess seen within the abdomen or pelvis. No worrisome osseous finding. IMPRESSION: Large amount of subcutaneous emphysema is present in the abdomen and pelvis subcutaneous fat.A clear source of the subcutaneous emphysema is not visualized. Postsurgical changes involve the right kidney as detailed. Focal fluid collection at the surgical sit e of the right kidney may be related to caliceal rupture/urinoma. There is mild cortical parenchymal edema also noted in the anterior superior aspect of the right kidney.
--- NOTE | 2021-06-09 16:17 | P.HP ---
Certification for Inpatient Patient admitted to: Inpatient With expected LOS: <2 Midnights Patient will require the following post-hospital care: None Practitioner: I am a practitioner with admitting privileges, knowledge of patient current condition, hospital course, and medical plan of care. Services: Services provided to patient in accordance with Admission requirements found in Title 42 Section 412.3 of the Code of Federal Regulations <Kevin Munson - Last Filed: 06/09/21 16:11> Patient History Date of Service: 06/09/21 Primary Care Provider: Jose Reason for admission: subcutaneous emphysema History of Present Illness: Ms. Anthony is a 60 yo F with RCC s/p right partial renal nephrectomy, HTN, HLD, DM, and depression who presents with RUQ pain worse with deep breathing beginning a few days ago and worsening last night. She says the pain radiates to her R shoulder. On 06/02 she had a laparoscopic robotic-guided resection of the tumor on her right kidney performed at [facility] in [place]. She was discharged two days later, and says at that time she had mild pain from the surgery, but not the pain she describes today. Denies fever, nausea, vomiting. She received morphine in the ED and says now her pain is manageable. Case discussed with urology and pulmonology, and decision was made to admit the patient for observation and pain management. WBC 11.3 H/H 11 K 3.3 Cl 97 GFR 80 Glu 152 CTAP FINDINGS: The lungs are clear.No pleural or pericardial effusion.No intrathoracic adenopathy. There is age large amount of subcutaneous emphysema in the subcutaneous fat of the abdomen and pelvis. The liver demonstrates no focal mass or intrahepatic biliary dilatation. The spleen, pancreas, adrenal glands and left kidney are within normal limits. Postsurgical changes are seen involving the superior posterior aspect of the right kidney. Mild edematous appearance is noted in the cortex of the superomedial aspect of the right kidney. Fluid collection is seen in the region measuring 4.0 x 3.3 cm which may be postsurgical or small urinoma. Small calculus is seen inferior pole right kidney without hydronephrosis. Small air bubbles are present right perinephric fat. Small amount of free fluid is seen in the pelvis. A few small bubbles of air seen within the anterior intraperitoneal fat. Moderate soft tissue thickening is seen in the umbilical region. No bowel obstruction is present. No abscess seen within the abdomen or pelvis. No worrisome osseous finding. IMPRESSION: Large amount of subcutaneous emphysema is present in the abdomen and pelvis subcutaneous fat.A clear source of the subcutaneous emphysema is not visualized. Postsurgical changes involve the right kidney as detailed. Focal fluid collection at the surgical site of the right kidney may be related to caliceal rupture/urinoma. There is mild cortical parenchymal edema also noted in the anterior superior aspect of the right kidney. - Past Medical/Surgical History Diabetic: No -: Hypertension -: High Cholesterol -: Depression -: RCC -: DM -: Hysteroctomy -: Cervical laminectomy - Family History Father -: Lung disease (COPD) Mother -: Cancer Notes: adrenal cancer - Social History Smoking Status: Former smoker Alcohol use: No CD- Drugs: No Caffeine use: Yes Place of Residence: Home <Kevin Munson - Last Filed: 06/09/21 16:11> Date of Service: 06/09/21 <Mitul Sosa - Last Filed: 06/09/21 16:59> Allergies No Known Allergies Allergy (Verified 03/29/21 12:12) Home Medications: Aspirin [Aspirin EC 81 MG] 81 mg PO DAILY 03/24/21 Escitalopram [Lexapro*] 10 mg PO DAILY 03/24/21 Lisinopril [Zestril] 10 mg PO DAILY 03/24/21 Metformin HCl [Glucophage*] 1,000 mg PO BIDWM 03/24/21 Rosuvastatin Calcium [Crestor] 20 mg PO DAILY 03/24/21 Tolterodine Tartrate [Detrol LA*] 4 mg PO DAILY 03/24/21 Review of Systems General: Unremarkable Eyes: Unremarkable ENT: Unremarkable Respiratory: Unremarkable Cardiovascular: Unremarkable Gastrointestinal: Abdominal Pain Genitourinary: Unremarkable Musculoskeletal: Shoulder Pain Integumentary: Unremarkable Neurological: Unremarkable Lymphatics: Unremarkable <Kevin Munson - Last Filed: 06/09/21 16:11> Physical Examination - Physical Exam General: Alert, In no apparent distress HEENT: Atraumatic, PERRLA, Mucous membr. moist/pink, EOMI, Sclerae nonicteric Neck: Supple, 2+ carotid pulse no bruit, No LAD, Without JVD or thyroid abnormality Respiratory: Clear to auscultation bilaterally, Normal air movement Cardiovascular: Regular rate/rhythm, Normal S1 S2 Gastrointestinal: Normal bowel sounds, No ascites, No masses, No rebound, No guarding, Distended, Tenderness Musculoskeletal: No tenderness Integumentary: No rashes, Other (sutures intact ) Neurological: Normal speech, Normal strength at 5/5 x4 extr, Normal tone, Normal affect Lymphatics: No axilla or inguinal lymphadenopathy - Studies Laboratory Data (last 24 hrs) 06/09/21 12:10: WBC 11.30 H, Hgb 11.0 L, Hct 34.8 L, Plt Count 477 H 06/09/21 12:10: Sodium 136, Potassium 3.3 L, BUN 8, Creatinine 0.74, Glucose 152 H, Total Bilirubin 0.4, AST 12 L, ALT 22, Alkaline Phosphatase 106, Lipase 47 L <Kevin Munson - Last Filed: 06/09/21 16:11> - Studies Laboratory Data (last 24 hrs) 06/09/21 12:10: WBC 11.30 H, Hgb 11.0 L, Hct 34.8 L, Plt Count 477 H 06/09/21 12:10: Sodium 136, Potassium 3.3 L, BUN 8, Creatinine 0.74, Glucose 152 H, Total Bilirubin 0.4, AST 12 L, ALT 22, Alkaline Phosphatase 106, Lipase 47 L <Mitul Sosa - Last Filed: 06/09/21 16:59> Assessment and Plan - Problems (Diagnosis) (1) Renal cell carcinoma Current Visit: Yes Status: Chronic Qualifiers: Laterality: right Qualified Code(s): C64.1 - Malignant neoplasm of right kidney, except renal pelvis (2) Subcutaneous emphysema after procedure Current Visit: Yes Status: Acute (3) Diabetes mellitus Onset Date: 10/06/16 Current Visit: No Status: Chronic Qualifiers: Diabetes mellitus type: type 2 Diabetes mellitus long-term insulin use: without superintendent container terminal use Diabetes mellitus complication status: without complication Qualified Code(s): E11.9 - Type 2 diabetes mellitus without complications (4) Depression Current Visit: No Status: Chronic Qualifiers: Depression Type: major depressive disorder Major depression recurrence: single episode Active/Remission status: remission status unspecified Qualified Code(s): F32.9 - Major depressive disorder, single episode, unspecified (5) HLD (hyperlipidemia) Current Visit: No Status: Chronic Qualifiers: Hyperlipidemia type: mixed hyperlipidemia Qualified Code(s): E78.2 - Mixed hyperlipidemia (6) HTN (hypertension) Current Visit: No Status: Chronic Qualifiers: Hypertension type: essential hypertension Qualified Code(s): I10 - Essential (primary) hypertension - Plan urology consulted, pulmonology consulted full liquid diet pain management as needed sliding scale insulin and accuchecks potassium replacement reconcile and continue home medications DVT ppx Discharge Plan: Home Plan to discharge in: 24 Hours - Advance Directives Does patient have a Living Will: No Does patient have a Durable POA for Healthcare: No - Code Status/Comfort Care Code Status Assessed: Yes (full code ) Critical Care: No Time Spent Managing Pts Care (In Minutes): 70 <Kevin Munson - Last Filed: 06/09/21 16:11> - Plan Case discussed with Kevin Munson, agree with plan of care as noted above Subcutaneous emphysema most likely results from recent laparoscopic surgery, from possible instrumentation/insufflation <Mitul Sosa - Last Filed: 06/09/21 16:59>
--- NOTE | 2021-06-09 17:31 | EDPHYS ---
Physician Documentation [facility] Name: Nasra Anthony Age: 60 yrs Sex: Female : 1960 Arrival Date: 06/09/2021 Time: 11:47 Bed 5 Private MD: ED Physician Robert Gutierres HPI: 06/09 18:39 This 60 yrs old Female presents to ER via Wheelchair with complaints of Right upper kdr quadrant pain. 18:40 The patient presents with abdominal pain in the upper abdomen, in the right upper kdr quadrant. Onset: The symptoms/episode began/occurred gradually, 1 week(s) ago. The symptoms radiate to the right shoulder. The symptoms are described as achy, crampy, dull, intermittent. Modifying factors: The symptoms are alleviated by the symptoms are aggravated by movement, touching the area, walking. Severity of pain: At its worst the pain was severe incapacitating in the emergency department the pain is unchanged. The patient has not experienced similar symptoms in the past. 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 Historical: - Allergies: 11:57 No Known Allergies; vg1 - Home Meds: 11:57 ibuprofen 800 mg Oral tab [Active]; Lexapro Oral [Active]; Lyrica 100 mg Oral 2 times vg1 per day [Active]; 12:54 baclofen 10 mg Oral tab 1 tab 3 times per day [Active]; prednisone 10 mg Oral tab roberts [Active]; Tylenol #3 Oral [Active]; tizanidine 4 mg Oral cap twice a day [Active]; Tylenol #4 Oral [Active]; Wellbutrin Oral [Active]; - PMHx: 11:57 Depression; High Cholesterol; Hypertension; vg1 - Immunization history:: Client reports receiving the 2nd dose of the Covid vaccine. - Social history:: Smoking status: Patient denies any tobacco usage or history of. ROS: 18:40 Constitutional: Negative for fever, chills, and weight loss, Eyes: Negative for injury, kdr pain, redness, and discharge, Neck: Negative for injury, pain, and swelling, Cardiovascular: Negative for chest pain, palpitations, and edema, Respiratory: Negative for shortness of breath, cough, wheezing, and pleuritic chest pain, Back: Negative for injury and pain, : Negative for injury, bleeding, discharge, and swelling, MS/Extremity: Negative for injury and deformity, Skin: Negative for injury, rash, and discoloration, Neuro: Negative for headache, weakness, numbness, tingling, and seizure activity. Psych: Negative for depression, anxiety, suicide ideation, homicidal ideation, and hallucinations, Allergy/Immunology: Negative for hives, rash, and allergies, Endocrine: Negative for neck swelling, polydipsia, polyuria, polyphagia, and marked weight changes, Hematologic/Lymphatic: Negative for swollen nodes, abnormal bleeding, and unusual bruising. 18:40 Abdomen/GI: Positive for abdominal pain, Right flank pain, Negative for vomiting, diarrhea, constipation, abdominal cramps, abdominal distension, anorexia, dysphagia, hematemesis, black/tarry stool, rectal pain, rectal bleeding, bowel incontinence. Exam: 17:40 ECG was reviewed by the Attending Physician. kdr 18:40 Constitutional: This is a well developed, well nourished patient who is awake, alert, kdr and in moderate to severe distress. Head/Face: Normocephalic, atraumatic. Eyes: Pupils equal round and reactive to light, extra-ocular motions intact. Lids and lashes normal. Conjunctiva and sclera are non-icteric and not injected. Cornea within normal limits. Periorbital areas with no swelling, redness, or edema. Neck: Trachea midline, no thyromegaly or masses palpated, and no cervical lymphadenopathy. Supple, full range of motion without nuchal rigidity, or vertebral point tenderness. No Meningismus. Chest/axilla: Normal chest wall appearance and motion. Nontender with no deformity. No lesions are appreciated. Cardiovascular: Regular rate and rhythm with a normal S1 and S2. No gallops, murmurs, or rubs. Normal PMI, no JVD. No pulse deficits. Respiratory: Lungs have equal breath sounds bilaterally, clear to auscultation and percussion. No rales, rhonchi or wheezes noted. No increased work of breathing, no retractions or nasal flaring. Back: No spinal tenderness. No costovertebral tenderness. Full range of motion. Skin: Warm, dry with normal turgor. Normal color with no rashes, no lesions, and no evidence of cellulitis. MS/ Extremity: Pulses equal, no cyanosis. Neurovascular intact. Full, normal range of motion. Neuro: Awake and alert, GCS 15, oriented to person, place, time, and situation. Cranial nerves II-XII grossly intact. Motor strength 5/5 in all extremities. Sensory grossly intact. Cerebellar exam normal. Normal gait. Psych: Awake, alert, with orientation to person, place and time. Behavior, mood, and affect are within normal limits. 18:40 Abdomen/GI: Inspection: scar(s), Patient had robotic surgery about a week ago to remove a kidney tumor. She has multiple small well-healing incisions from her right upper quadrant to her right lower quadrant and including her umbilicus area, Bowel sounds: diminished, in all quadrants, Palpation: soft, mild abdominal tenderness, in the epigastric area, right upper quadrant and left upper quadrant. Vital Signs: 11:54 BP 141 / 83; Pulse 98; Resp 24; Temp 97.8; Pulse Ox 94% ; Weight 106.59 kg; Height 5 vg1 ft. 8 in. (172.72 cm); Pain 10/10; 12:53 BP 144 / 77; Pulse 90; Resp 18; Pulse Ox 97% on R/A; roberts 13:00 BP 140 / 77; Pulse 88; Resp 22 S; Pulse Ox 94% ; jg9 13:15 BP 141 / 75; Pulse 90; Resp 23 S; Pulse Ox 94% ; jg9 14:59 BP 153 / 78; Pulse 115; Resp 18; Pulse Ox 96% on R/A; roberts 16:15 BP 141 / 52; Pulse 98; Resp 18 S; Pulse Ox 100% on R/A; jg9 16:38 BP 125 / 63; Pulse 99; Resp 18; Pulse Ox 96% on R/A; roberts 11:54 Body Mass Index 35.73 (106.59 kg, 172.72 cm) vg1 MDM: 17:30 Patient medically screened. kdr 18:40 Data reviewed: vital signs, nurses notes, lab test result(s), radiologic studies. kdr Counseling: I had a detailed discussion with the patient and/or guardian regarding: the historical points, exam findings, and any diagnostic results supporting the discharge/admit diagnosis, lab results, radiology results, the need for further work-up and treatment in the hospital. Physician consultation: I spoke with Dr. Ferraro who indicated that he felt the subcutaneous emphysema was not due to his procedure. He was not sure why the patient would have this presentation at this time. He asked that Dr. Reyes be consulted. Based on the patient's condition and extent of subcutaneous emphysema, patient could not be discharged and was admitted to the hospitalist service with consult to Dr. Ferraro and Dr. Reyes. ED course: Patient was stable in the ED and was admitted to the floor in good/improved condition. 06/09 12:13 Order name: Basic Metabolic Panel; Complete Time: 13:13 [facility] 06/09 12:13 Order name: CBC with Diff; Complete Time: 13:13 [facility] 06/09 12:13 Order name: Hepatic Function; Complete Time: 13:13 [facility] 06/09 12:13 Order name: Lipase; Complete Time: 13:13 [facility] 06/09 17:15 Order name: COVID-19 SARS RT PCR (Document "Date of Onset" if Symptomatic) [facility] 06/09 18:30 Order name: SARS-COV-2 RT PCR; Complete Time: 20:27 [facility] 06/09 12:13 Order name: IV Saline Lock; Complete Time: 12:14 [facility] 06/09 12:13 Order name: Labs collected and sent; Complete Time: 12:25 [facility] 06/09 12:13 Order name: EKG - Nurse/Tech; Complete Time: 12:14 [facility] 06/09 13:14 Order name: CT Chest, Abdomen, Pelvis - W/Contrast; Complete Time: 13:57 [facility] 06/09 16:10 Order name: CONS Physician Consult EDMS EC:40 Rate is 92 beats/min. Rhythm is regular, Sinus Rhythm with No ectopy. QRS [place] is kdr Normal. [place] interval is normal. QRS interval is normal. Clinical impression: NSR w/ Non-specific ST/T Changes. Administered Medications: 13:39 Drug: morphine 4 mg Route: IVP; Site: right antecubital; roberts 13:39 Follow up: Response: No adverse reaction roberts 13:39 Drug: Zofran (Ondansetron) 4 mg Route: IVP; Site: right antecubital; roberts 13:39 Follow up: Response: No adverse reaction roberts Disposition Summary: 06/09/21 17:30 Hospitalization Ordered Hospitalization Status: Inpatient Admission kdr Provider: Mitul Sosa Location: Telemetry/MedSur (Inpatient) kdr Condition: Fair kdr Problem: new kdr Symptoms: have improved kdr Bed/Room Type: Standard [facility] Room Assignment: 222(06/09/21 20:26) Diagnosis - Upper abdominal pain, unspecified kdr - Emphysema (subcutaneous) resulting from a procedure, initial encounter kdr Forms: - Medication Reconciliation Form kdr - SBAR form kdr Signatures: Dispatcher [employer] EDMS Robert Gutierres MD MD kdr Nick Keita PA PA jmm Garcia, Cindy RN Yamilka Dawson RN RN 1 Lena Do RN RN jg9 Caron Buck RN RN roberts Corrections: (The following items were deleted from the chart) 11:59 11:57 Allergies: Hydrocodone-Acetaminophen; vg1 vg1 20:26 17:30 kdr cg
--- NOTE | 2021-06-09 17:31 | ER ---
Nurse's Notes [facility] Name: Nasra Anthony Age: 60 yrs Sex: Female : 1960 Arrival Date: 06/09/2021 Time: 11:47 Bed 5 Private MD: Diagnosis: Upper abdominal pain, unspecified;Emphysema (subcutaneous) resulting from a procedure, initial encounter Presentation: 06/09 11:54 Chief complaint: Patient states: has Kidney sx x1 week and is now having a sharp pain vg1 on Right side that radiates up to Right shoulder; also has SOB and auditory wheezing. Coronavirus screen: Vaccine status: Patient reports receiving the 2nd dose of the covid vaccine. Client denies travel out of the [place] in the last 14 days. Ebola Screen: Patient negative for fever greater than or equal to 101.5 degrees Fahrenheit, and additional compatible Ebola Virus Disease symptoms. Initial Sepsis Screen: Does the patient meet any 2 criteria? RR > 20 per min. Does the patient have a suspected source of infection? No. Patient's initial sepsis screen is negative. Risk Assessment: Do you want to hurt yourself or someone else? Patient reports no desire to harm self or others. Onset of symptoms was June 08, 2021. 11:54 Method Of Arrival: Wheelchair vg1 11:54 Acuity: STEVE 3 vg1 Triage Assessment: 11:57 General: Appears uncomfortable, Behavior is calm, cooperative. Pain: Complains of pain vg1 in right mid back. Respiratory: Reports shortness of breath at rest on exertion Onset: The symptoms/episode began/occurred yesterday, the patient has moderate shortness of breath. Historical: - Allergies: 11:57 No Known Allergies; vg1 - Home Meds: 11:57 ibuprofen 800 mg Oral tab [Active]; Lexapro Oral [Active]; Lyrica 100 mg Oral 2 times vg1 per day [Active]; 12:54 baclofen 10 mg Oral tab 1 tab 3 times per day [Active]; prednisone 10 mg Oral tab roberts [Active]; Tylenol #3 Oral [Active]; tizanidine 4 mg Oral cap twice a day [Active]; Tylenol #4 Oral [Active]; Wellbutrin Oral [Active]; - PMHx: 11:57 Depression; High Cholesterol; Hypertension; vg1 - Immunization history:: Client reports receiving the 2nd dose of the Covid vaccine. - Social history:: Smoking status: Patient denies any tobacco usage or history of. Screenin:13 Abuse screen: Denies threats or abuse. Denies injuries from another. Nutritional jg9 screening: No deficits noted. Tuberculosis screening: No symptoms or risk factors identified. Fall Risk None identified. Assessment: 12:06 Cardiovascular: Rhythm is regular. Respiratory: Airway is patent Respiratory effort is roberts even, unlabored, shallow, Breath sounds with wheezes. GI: Abdomen is round non-distended, Reports Pain is 8 out of 10 on a pain scale. 19:05 Reassessment: Patient and/or family updated on plan of care and expected duration. Pain vc1 level reassessed. Patient is alert, oriented x 3, equal unlabored respirations, skin warm/dry/pink. Assumed care from day nurse. 19:05 Respiratory: Reports shortness of breath at rest. vc1 Vital Signs: 11:54 BP 141 / 83; Pulse 98; Resp 24; Temp 97.8; Pulse Ox 94% ; Weight 106.59 kg; Height 5 vg1 ft. 8 in. (172.72 cm); Pain 10/10; 12:53 BP 144 / 77; Pulse 90; Resp 18; Pulse Ox 97% on R/A; roberts 13:00 BP 140 / 77; Pulse 88; Resp 22 S; Pulse Ox 94% ; jg9 13:15 BP 141 / 75; Pulse 90; Resp 23 S; Pulse Ox 94% ; jg9 14:59 BP 153 / 78; Pulse 115; Resp 18; Pulse Ox 96% on R/A; roberts 16:15 BP 141 / 52; Pulse 98; Resp 18 S; Pulse Ox 100% on R/A; jg9 16:38 BP 125 / 63; Pulse 99; Resp 18; Pulse Ox 96% on R/A; roberts 11:54 Body Mass Index 35.73 (106.59 kg, 172.72 cm) vg1 ED Course: 11:47 Patient arrived in ED. rg4 11:57 Triage completed. vg1 11:57 Arm band placed on. vg1 12:10 Inserted saline lock: 20 gauge in right antecubital area, using aseptic technique. jg9 Blood collected. 12:13 Lena Do, RN is Primary Nurse. jg9 12:46 Robert Gutierres MD is Attending Physician. kdr 12:54 No provider procedures requiring assistance completed. roberts 12:55 Patient has correct armband on for positive identification. Bed in low position. roberts 13:40 CT Chest, Abdomen, Pelvis - W/Contrast In Process Unspecified. EDMS 17:28 COVID-19 SARS RT PCR (Document "Date of Onset" if Symptomatic) Sent. roberts 17:29 Mitul Sosa MD is Hospitalizing Provider. kdr 21:10 Patient admitted, IV remains in place. tw5 Administered Medications: 13:39 Drug: morphine 4 mg Route: IVP; Site: right antecubital; roberts 13:39 Follow up: Response: No adverse reaction roberts 13:39 Drug: Zofran (Ondansetron) 4 mg Route: IVP; Site: right antecubital; roberts 13:39 Follow up: Response: No adverse reaction roberts Outcome: 17:30 Decision to Hospitalize by Provider. kdr 20:42 Admitted to Med/surg Report called to attempted to call report. Was told Lucio will be tw5 the accepting nurse 20:46 Admitted to Med/surg Report called to Gave report to lucio tw5 21:10 Condition: stable tw5 21:11 Patient left the ED. tw5 Signatures: Dispatcher [employer] EDIA Robert Gutierres MD MD kdr Migdalia Woo rg4 Yamilka Woo RN RN 1 Naya Mathias tw5 Lena Do RN RN jg9 Caron Buck RN RN Radah Vega RN RN vc1 Corrections: (The following items were deleted from the chart) 11:59 11:57 Allergies: Hydrocodone-Acetaminophen; vg1 vg1
[2021-06-09] MEDS ORDERED: ONDANSETRON 4 MG/2 ML VIAL IV PRN (21:27)
[2021-06-09] MEDS: INSULIN -REGULAR HUMAN 50 UNIT/0.5 ML ML SQ SCH (21:27)
[2021-06-09] MEDS ORDERED: ACETAMINOPHEN 500 MG TAB PO PRN (21:27)
[2021-06-09] MEDS ORDERED: POTASSIUM CL SA 10 MEQ TAB PO ONE (22:29)
[2021-06-09] MEDS: MORPHINE 2 MG/ML SYR IV PRN (22:39)
[2021-06-09 23:17] VITALS: BMI 35.7
[2021-06-10 06:13] LABS: Absolute Lymphocytes (CBC) 2.1 K/uL (0.7-4.9); Hematocrit 33.2 % (36.0-45.0); Lymphocytes % 19.4 % (15.3-44.8); MPV 7.3 fL (7.6-11.3); RBC Red Blood Cell Count 4.15 M/uL (3.86-4.86)
--- NOTE | 2021-06-10 06:42 | P.PN ---
Date of Service: 06/10/21 Subjective: Feeling better Continues with right upper quadrant discomfort, right shoulder discomfort, mainly provoked when taking a deep breath Short of breath when sits up No new symptoms Rating comfortable on 2 L ROS: 10 point ROS as noted above, otherwise negative Physical exam GEN: Alert, oriented, NAD HEENT: Normal conjunctiva, sclera anicteric CV: Regular rate and rhythm, no edema Pulm: Nonlabored respirations on 2L NC, b/l expiratory wheeze, slight splinting with deep inspiration ABD: Soft, nontender Integumentary: No rashes Neuro: Normal speech, normal affect Problem List Subcutaneous emphysema after laparoscopic/robotic assisted partial nephrectomy Renal cell carcinoma DM2, [id number] Depression Hypertension Urology and pulmonology consulted in the ED Suspect subcutaneous emphysema secondary to abdominal insufflation Suspect shortness of breath secondary to shallow respirations Patient reports history of DVT following surgery 4 years ago CTA chest ordered to rule out PE Obtain home medications, restart as appropriate Advance diet Wean oxygen Patient with likely undiagnosed COPD, over [id number] smoking history, quit 9 years ago Reports some chronic shortness of breath VTE: Lovenox Code: Full Dispo: Anticipate DC home tomorrow Time Spent Managing Pts Care (In Minutes): 35
[2021-06-10] MEDS: MORPHINE 2 MG/ML SYR IV PRN (06:46)
[2021-06-10 07:06] LABS: Albumin 2.6 g/dL (3.4-5.0); Bilirubin Total 0.5 mg/dL (0.2-1.0); Phosphorus 3.4 mg/dL (2.5-4.9); Potassium 4.1 mmol/L (3.5-5.1); Thyroid Stimulating Hormone 1.1 uIU/mL (0.360-3.740)
[2021-06-10] MEDS: INSULIN -REGULAR HUMAN 50 UNIT/0.5 ML ML SQ SCH ×4 (07:30→21:00)
--- NOTE | 2021-06-10 07:49 | RAD REPORT ---
EXAM DESCRIPTION: RAD - Chest Single View - 06/10/2021 6:47 am CLINICAL HISTORY: r/o pneumothorax COMPARISON: Chest Pa And Lat (2 Views) dated 03/24/2021; Chest Pa And Lat (2 Views) dated 08/16/2020; Chest Single View dated 10/06/2016; Chest Single View dated 10/05/2016 FINDINGS: Lines: None. Lungs: No evidence of edema or pneumonia. Pleural: No significant pleural effusions or pneumothorax. Cardiac: The heart size is within normal limits. Bones: No acute fractures. Other: IMPRESSION: No acute cardiopulmonary disease.
[2021-06-10] MEDS: ENOXAPARIN 40 MG/0.4 ML SQ SCH (09:13)
[2021-06-10] MEDS ORDERED: HYDROCODONE/APAP 5/325 MG TAB PO PRN (09:31)
[2021-06-10 09:48] LABS: Urine Appearance CLEAR (Clear); Urine Blood 2+ (Negative); Urine Color DK YELLOW (Yellow); Urine Glucose NEGATIVE (Negative); Urine Protein TRACE (Negative); Urine Specific Gravity >=1.030 (1.005-1.030)
[2021-06-10 10:05] LABS: Urine Bilirubin 1+ (Negative); Urine Microscopic Reflex ORDER UMIC
[2021-06-10 10:18] LABS: Urine Bacteria 20-50 /HPF (<20); Urine Mucus LIGHT /HPF (NONE SEEN); Urine RBC 20-50 /HPF (NONE SEEN)
--- NOTE | 2021-06-10 11:40 | P.CNS ---
Date of Consult: 06/10/21 Primary Care Provider: Jose Chief Complaint: subcutaneous emphysema History of Present Illness: Patient is 60 years of age underwent a right partial nephrectomy presented with the right upper quadrant pain started after the operation found to have a large amount of subcutaneous emphysema he still having some discomfort has some chronic shortness of breath quit smoking about 9 years ago Allergies No Known Allergies Allergy (Verified 06/09/21 23:03) Home Medications: Escitalopram [Lexapro*] 20 mg PO DAILY 03/24/21 Lisinopril [Zestril] 10 mg PO DAILY 03/24/21 Metformin HCl [Glucophage*] 1,000 mg PO BIDWM 03/24/21 Rosuvastatin Calcium [Crestor] 20 mg PO DAILY 03/24/21 Tolterodine Tartrate [Detrol LA*] 4 mg PO DAILY 03/24/21 glipiZIDE [Glipizide] 5 mg PO DAILY 06/09/21 - Past Medical/Surgical History Diabetic: Yes -: Hypertension -: High Cholesterol -: Depression -: RCC -: DM -: Hysteroctomy -: Cervical laminectomy -: kidney mass removed - Family History Father Medical History: Lung disease Mother Medical History: Cancer Notes: adrenal cancer - Social History Alcohol use: No CD- Drugs: No Caffeine use: Yes Place of Residence: Home Review of Systems 10-point ROS is otherwise unremarkable Gastrointestinal: As per HPI Physical Examination Temp Pulse Resp BP Pulse Ox 97 F 87 18 134/64 91 06/10/21 08:00 06/10/21 08:00 06/10/21 09:47 06/10/21 08:00 06/10/21 09:47 General: Alert, In no apparent distress, Oriented x3 HEENT: Atraumatic Neck: Supple Respiratory: Clear to auscultation bilaterally, Friction rub Cardiovascular: Regular rate/rhythm Gastrointestinal: Normal bowel sounds, Soft and benign, Other (No tenderness noted) Laboratory Data (last 24 hrs) 06/09/21 12:10: WBC 11.30 H, Hgb 11.0 L, Hct 34.8 L, Plt Count 477 H 06/09/21 12:10: Sodium 136, Potassium 3.3 L, BUN 8, Creatinine 0.74, Glucose 152 H, Total Bilirubin 0.4, AST 12 L, ALT 22, Alkaline Phosphatase 106, Lipase 47 L - Problems (1) Shortness of breath Current Visit: Yes Status: Acute Plan: Patient is a former smoker has some shortness of breath noted after the right- sided nephrectomy will do a CT pulmonary angiogram rule out pulmonary embolism as she is postop no obvious abdominal tenderness labs reviewed chest x-ray normal chemistries mild anemia possible discharge after the CT angio advance diet room air sat is 94% significant subcutaneous abdominal emphysema
--- NOTE | 2021-06-10 12:40 | RAD REPORT ---
EXAM DESCRIPTION: CT - Chest Angio - 06/10/2021 12:07 pm CLINICAL HISTORY: Rule out pulmonary embolism status post right neph COMPARISON: Chest For Pe Angio dated 10/05/2016; Chest Single View dated 06/10/2021; Chest Abdomen Pelvi s W Cont dated 06/09/2021; Abdomen Pelvis Wo Contrast dated 03/15/2021; Abdomen W Contrast dated 02/14 FINDINGS: Chest Wall: No suspicious thyroid nodules or pathologic lymphadenopathy. Lungs: No acute abnormality. Pleura: No significant effusions or pneumothorax. Mediastinum/linn: No pathologic lymphadenopathy. Pulmonary arteries/Aorta: No filling defect identified. No aortic aneurysm. Heart: Trace pericardial effusion. Mild cardiomegaly. Coronary artery calcifications. Upper abdomen: Surgical changes from recent partial right nephrectomy. Subcutaneous emphysema within the abdominal in chest wall likely postoperative. A small amount of fluid is present along the liver capsule on the right. Bones: No acute abnormality. All CT scans are performed using dose optimization technique as appropriate and may include automated exposure control or mA/KV adjustment according to patient size. IMPRESSION: Negative for pulmonary embolism. No acute findings within the chest. Postoperative changes from recent partial nephrectomy. Subcutaneous gas in the abdominal wall is like ly postoperative assuming this was done under laparoscopy.
[2021-06-10] MEDS ORDERED: ALBUTEROL 2.5 MG/3 ML NEB SOL NEB PRN (13:28)
[2021-06-10 15:29] LABS: Magnesium 1.8
[2021-06-10] MEDS: HYDROCODONE/APAP 5/325 MG TAB PO PRN ×2 (17:29→23:59)
--- NOTE | 2021-06-11 06:35 | P.PN ---
Date of Service: 06/11/21 Subjective: ROS: 10 point ROS as noted above, otherwise negative Physical exam GEN: Alert, oriented, NAD HEENT: Normal conjunctiva, sclera anicteric CV: Regular rate and rhythm, no edema Pulm: Nonlabored respirations on 2L NC, b/l expiratory wheeze, slight splinting with deep inspiration ABD: Soft, nontender Integumentary: No rashes Neuro: Normal speech, normal affect Problem List Subcutaneous emphysema after laparoscopic/robotic assisted partial nephrectomy Renal cell carcinoma DM2, [id number] Depression Hypertension Urology and pulmonology consulted in the ED Suspect subcutaneous emphysema secondary to abdominal insufflation Suspect shortness of breath secondary to shallow respirations Patient reports history of DVT following surgery 4 years ago CTA chest ordered to rule out PE Obtain home medications, restart as appropriate Advance diet Wean oxygen Patient with likely undiagnosed COPD, over [id number] smoking history, quit 9 years ago Reports some chronic shortness of breath VTE: Lovenox Code: Full Dispo: Anticipate DC home tomorrow Time Spent Managing Pts Care (In Minutes): 35
[2021-06-11] MEDS: INSULIN -REGULAR HUMAN 50 UNIT/0.5 ML ML SQ SCH ×2 (07:30→11:30)
[2021-06-11] MEDS: ENOXAPARIN 40 MG/0.4 ML SQ SCH (08:56)
[2021-06-11 09:03] VITALS: O2SAT 92
[2021-06-11] MEDS: HYDROCODONE/APAP 5/325 MG TAB PO PRN (11:07)
[2021-06-11 13:34] VITALS: BP 114/69; TEMP 97.2
--- NOTE | 2021-06-11 18:16 | P.DS ---
Admission Date: 06/09/21 Discharge Date: 06/11/21 Primary Care Provider: Jose Disposition: ROUTINE DISCHARGE Discharge Condition: GOOD Reason for Admission: subcutaneous emphysema Consultations: Urology Pulmonology Procedures: Problem List Subcutaneous emphysema after laparoscopic/robotic assisted partial nephrectomy Renal cell carcinoma DM2, [id number] Depression Hypertension Brief History of Present Illness: 60 yo F with RCC s/p right partial renal nephrectomy, HTN, HLD, DM, and depression who presents with RUQ pain worse with deep breathing beginning a few days ago and worsening last night. She says the pain radiates to her R shoulder. On 06/02 she had a laparoscopic robotic-guided resection of the tumor on her right kidney performed at [facility] in [place]. She was discharged two days later, and says at that time she had mild pain from the surgery, but not the pain she describes today. Denies fever, nausea, vomiting. She received morphine in the ED and says now her pain is manageable. Case discussed with urology and pulmonology, and decision was made to admit the patient for observation and pain management. WBC 11.3 H/H 11 K 3.3 Cl 97 GFR 80 Glu 152 Hospital Course: Found to have air between fat/skin throughout abdomen. CT chest/abdomen/pelvis was negative for any infection, no blood clot, no other acute findings. Patient's shortness of breath and pain is secondary to subcutaneous emphysema / post-insufflation. She had improvement of her symptoms and was breathing more comfortably after pain control was achieved. She was evaluated by Pulmonology and Urology. Deemed stable for discharge home. Given short prescription for norco. Advised on breathing exercises / incentive spirometer. Follow up with PCP in 1 week. Vital Signs/Physical Exam: Physical exam GEN: Alert, oriented, NAD HEENT: Normal conjunctiva, sclera anicteric CV: Regular rate and rhythm, no edema Pulm: Nonlabored respirations on room air ABD: Soft, nontender, slight crepitus Integumentary: No rashes Neuro: Normal speech, normal affect Temp Pulse Resp BP Pulse Ox 97.2 F 82 18 114/69 93 06/11/21 12:00 06/11/21 12:00 06/11/21 12:07 06/11/21 12:00 06/11/21 12:07 Laboratory Data at Discharge: WBC 10.70 K/uL (4.3-10.9) 06/10/21 05:52 Hgb 10.9 g/dL (12.0-15.0) L 06/10/21 05:52 Hct 33.2 % (36.0-45.0) L 06/10/21 05:52 Plt Count 517 K/uL (152-406) H 06/10/21 05:52 Sodium 135 mmol/L (136-145) L 06/10/21 05:52 Potassium 4.1 mmol/L (3.5-5.1) 06/10/21 05:52 BUN 9 mg/dL (7-18) 06/10/21 05:52 Creatinine 0.68 mg/dL (0.55-1.3) 06/10/21 05:52 Glucose 124 mg/dL (74-106) H 06/10/21 05:52 Phosphorus 3.4 mg/dL (2.5-4.9) 06/10/21 05:52 Magnesium 1.8 06/10/21 05:52 Total Bilirubin 0.5 mg/dL (0.2-1.0) 06/10/21 05:52 AST 9 U/L (15-37) L 06/10/21 05:52 ALT 20 U/L (12-78) 06/10/21 05:52 Alkaline Phosphatase 95 U/L (45-117) 06/10/21 05:52 Triglycerides 115 mg/dL (<150) 06/10/21 05:52 Cholesterol 160 mg/dL (<200) 06/10/21 05:52 HDL Cholesterol 47 mg/dL (40-60) 06/10/21 05:52 Cholesterol/HDL Ratio 3.40 06/10/21 05:52 Lipase 47 U/L (73-393) L 06/09/21 12:10 Home Medications: Escitalopram [Lexapro*] 20 mg PO DAILY 03/24/21 Lisinopril [Zestril] 10 mg PO DAILY 03/24/21 Metformin HCl [Glucophage*] 1,000 mg PO BIDWM 03/24/21 Rosuvastatin Calcium [Crestor] 20 mg PO DAILY 03/24/21 Tolterodine Tartrate [Detrol LA*] 4 mg PO DAILY 11/18/21 glipiZIDE [Glipizide] 5 mg PO DAILY 06/09/21 Hydrocodone 5/APAP 325 [[place] 5/325*] 1 tab PO Q8H PRN 5 Days #15 tab 06/11/21 New Medications: Hydrocodone 5/APAP 325 [[place] 5/325*] 1 tab PO Q8H PRN 5 Days #15 tab PRN Reason: Pain Scale 5-7 (Moderate) Physician Discharge Instructions: Found to have air between fat/skin throughout abdomen. CT chest/abdomen/pelvis was negative for any infection, no blood clot, no other acute findings. Patient's shortness of breath and pain is secondary to subcutaneous emphysema / post-insufflation. She had improvement of her symptoms and was breathing more comfortably after pain control was achieved. She was evaluated by Pulmonology and Urology. Deemed stable for discharge home. Given short prescription for norco. Advised on breathing exercises / incentive spirometer. Follow up with PCP in 1 week. Diet: ADA Activity: Ad odette Followup: NONE,NONE [Primary Care Provider] - Time spent managing pt's care (in minutes): 45
--- NOTE | 2021-06-13 11:37 | EKG ---
Test Date: 2021-06-09 Test Time: 12:05:28 Ict Sales Representative: VICKEY MEASUREMENT RESULTS: Intervals: Rate: 92 UT: 126 QRSD: 80 QT: 358 QTc: 442 [place]: P: 68 UT: 126 QRS: 96 T: 54 INTERPRETIVE STATEMENTS: Normal sinus rhythm Rightward axis Low voltage QRS Borderline ECG Compared to ECG 10/06/2016 08:50:24 Right-axis deviation now present Low QRS voltage now present Sinus tachycardia no longer present Atrial premature complex(es) no longer present Electronically Signed On 06-13-21 11:31:02 [employer] MAINTENA[employer]CE SUPERVISOR by Trip Cifuentes
== END 2021-06-11 14:15 | disposition home or self-care (01) | DRG 920 ==
LOC: ER 11:46 → ERHOLD 16:08 → 2ND 20:44
PROVIDERS: ADMIT Hospitalist; ATTEND Hospitalist
DX: T81.82XA Emphysema (subcutaneous) resulting from a procedure, initial encounter (principal); C64.1 Malignant neoplasm of right kidney, except renal pelvis; E11.9 Type 2 diabetes mellitus without complications; E78.2 Mixed hyperlipidemia; F32.5 Major depressive disorder, single episode, in full remission; I10 Essential (primary) hypertension; Z90.710 Acquired absence of both cervix and uterus; Z79.82 Long term (current) use of aspirin; Z79.899 Other long term (current) drug therapy; Z79.52 Long term (current) use of systemic steroids; Z86.718 Personal history of other venous thrombosis and embolism; Z87.891 Personal history of nicotine dependence; Z79.84 Long term (current) use of oral hypoglycemic drugs; Z20.822 Contact with and (suspected) exposure to COVID-19
CPT/HCPCS: 36415; 71045; 71260; 71275; 74177; 80048; 80053; 80061; 80076; 81003; 81015; 82947; 83690; 83735; 84100; 84439; 84443; 85025; 87086; 87088; 93005; 94760; 96374; 96375; 99285; J1650; J2270; J2405; Q9967; U0003